=== PATIENT | male | born 1970 | race Two or more races ===

== ENCOUNTER 2021-02-03 10:30 | Emergency (ER) | payer MEDICAID ==
[~2021-02-03] VITALS: Ht 180.3 cm; Wt 84.0 kg
[2021-02-03] MEDS ORDERED: LIDOCAINE HCL/PF 1% 10 MG/ML 5ML VIAL INFIL NR (11:00)
[2021-02-03] MEDS ORDERED: BACITRACIN ZINC OINT UDPKT TOP NR (11:00)
[2021-02-03] MEDS ORDERED: IBUPROFEN 600MG TABLET PO NR (11:00)
[2021-02-03] MEDS ORDERED: IBUP-2029 PO (12:05)
[2021-02-03 12:38] VITALS: BP 118/85
== END 2021-02-03 12:40 | disposition home or self-care (01) ==
LOC: ER 10:30
DX: S61.314A Laceration without foreign body of right ring finger with damage to nail, initial encounter (principal); I10 Essential (primary) hypertension; W25.XXXA Contact with sharp glass, initial encounter; Y93.9 Activity, unspecified; Y92.9 Unspecified place or not applicable; Z85.9 Personal history of malignant neoplasm, unspecified
CPT/HCPCS: 99283; A4217; J3490; Z7610